=== PATIENT | female | born 1965 | race Caucasian/White ===

== ENCOUNTER 2016-11-20 19:57 | Inpatient (IN) ==
[2016-11-20 21:00] LABS: MANUAL DIFF NEEDED? NO
[2016-11-20 21:03] LABS: URINE MICRO REVIEW NEEDED? NO
[2016-11-20 21:10] LABS: BILIRUBIN URINE NEGATIVE (NEGATIVE); BLOOD URINE NEGATIVE (NEGATIVE); COLOR YELLOW; GLUCOSE URINE 500 mg/dL (NEGATIVE); LEUKOCYTES URINE TRACE (NEGATIVE); NITRITE URINE NEGATIVE (NEGATIVE); PH URINE 5.5; PROTEIN URINE NEGATIVE (NEGATIVE); UROBILINOGEN URINE NORMAL (NORMAL)
[2016-11-20 21:11] LABS: BASO% 0.2 % (0.0-0.8); EOS# 0.07 X1000 (0.0-0.7); EOS% 1.7 % (0.0-10.0); HEMATOCRIT 39.3 % (37.0-47.0); HEMOGLOBIN 13.6 g/dL (12.0-16.0); LYMPH# 1.77 X1000 (1.2-3.4); LYMPH% 43.2 % (20.5-51.1); MCH 31.5 PG (27-31); MCHC 34.6 g/dL (33-37); MONO# 0.28 X1000 (0.11-0.59); MONO% 6.8 % (1.7-9.3); MPV 10.6 FL (7.4-10.4); NEUT% 48.1 % (42.2-75.2); PLT 173 X1000 (130-400); RBC 4.32 XMIL (4.2-5.4)
[2016-11-20 21:21] LABS: SP GRAVITY URINE 1.012; TURBIDITY URINE HAZY (CLEAR)
[2016-11-20 21:22] LABS: UR EPITHELIAL CELLS <10 /HPF (<10); URINE BACTERIA 2+ /HPF; URINE CULTURE NEEDED? YES; URINE RBC <10 /HPF (<10)
[2016-11-20 21:32] LABS: URINE SOURCE CLEAN CATCH
[2016-11-20 21:46] LABS: AGAP 19; ALBUMIN 3.8 g/dL (3.5-5.0); ALKALINE PHOSPHATASE 47 U/L (32-104); AMYLASE 41 U/L (20-200); BUN 8 mg/dL (8-22); CALCIUM 9.1 mg/dL (8.8-10.2); CHLORIDE 102 mmol/L (98-107); COSMO 282; GOT 26 U/L (10-30); GPT 23 U/L (10-36); LIPASE 156 U/L (13-60); SODIUM 139 mmol/L (136-145); TCO2 18 mmol/L (25-35); TOTAL BILIRUBIN 0.23 mg/dL (0.20-1.00); TOTAL PROTEIN 6.7 g/dL (6.3-8.3)
[2016-11-20] MEDS ORDERED: NS 500 ML IV ONE (23:11)
[2016-11-20] MEDS ORDERED: ZOFRAN IV ONE (23:14)
[2016-11-20] MEDS ORDERED: MORPHINE IV ONE (23:14)
--- NOTE | 2016-11-20 23:18 | PROVIDER DOCUMENTATION ---
This chart was entered by Josseline Mills Scribe, acting as scribe for Ender Rosas CRNP. HPI-General Adult - General Chief Complaint: Fever Stated Complaint: FLU SX Time Seen by Provider: 11/20/16 23:06 Source: patient Allergies/Adverse Reactions: Patient Allergies Allergy/AdvReac Type Severity Reaction Status Date / Time Penicillins Allergy Unknown Verified 11/20/16 23:38 sucralfate [From Carafate] Allergy Unknown Verified 11/20/16 23:38 - History of Present Illness -Gen Adult Nature of Presenting Problems: 51 year old F presents to the ED with a cc of nausea, vomiting, diarrhea, cough , ABD pain, and generalized weakness with an onset of yesterday. PT states that she was seen at [place] ED and diagnosed with the flu. PT states that she was given Tamiflu and cough medications. PT states that she is getting worse. Location of Pain/Injury: reports: generalized Pain Radiation: reports: no radiation Quality of Pain: reports: aching Severity: reports: mild Onset/Duration: reports: 24 hours ago Timing: reports: still present Context/Activities at Onset: reports: none Modifying Factors: improves with: nothing Associated Symptoms: reports: cough, diarrhea, muscle aches, nausea, vomiting Similar Symptoms Previously?: No Recently seen or treated by another doctor?: Yes Review of Systems - Adult - REVIEW OF SYSTEMS - ADULT Constitutional: reports: fatique. denies: chills, fever Eyes: reports: no symptoms reported Ears, Nose, Mouth & Throat: denies: ear pain, throat pain Cardiovascular: reports: no symptoms reported Respiratory: reports: cough. denies: shortness of breath Gastrointestinal: reports: abdominal pain, diarrhea, nausea, vomiting Genitourinary: denies: dysuria, hematuria Musculoskeletal: reports: muscle weakness. denies: muscle aches Integumentary: denies: skin sores/ulcer, skin thickening Neurological: reports: no symptoms reported Psychiatric: reports: no symptoms reported Endocrine: reports: no symptoms reported Hematologic/Lymphatic: reports: no symptoms reported Allergic/Immunologic: reports: no symptoms reported All Other Systems: Reviewed and Negative Past History - Adult - PAST MEDICAL HISTORY-ADULT Review of Records: reports: Nursing Assessment Review, Medications Reviewed Major Childhood Illnesses: reports: denies history - PRIOR SURGERIES/PROCEDURES Surgical/Procedure History: reports: none - IMMUNIZATION STATUS Childhood Immunizations: See Nurse Assessment Flu Vaccine: See Nurse Assessment - SOCIAL HISTORY Smoking: non-smoker Substance Use: none/never Alcohol Use Frequency: never Physical Exam-General - PHYSICAL EXAM-ADULT Initial Vital Signs Reviewed: Yes - CONSTITUTIONAL General Appearance: alert, mild distress. negative: appears well - EYES Eyes: PERRL/EOMI - HEAD, EARS, NOSE, MOUTH & THROAT HENMT: normocephalic/atraumatic, moist mucous membranes, normal ENT inspection - RESPIRATORY Respiratory: chest non-tender, lungs clear, normal breath sounds - CARDIOVASCULAR Cardiovascular: normal peripheral pulses, regular rate, rhythm, no edema - GASTROINTESTINAL (ABDOMEN) Abdominal Exam: normal bowel sounds, soft, tenderness (epigastric) - MUSCULOSKELETAL Extremity: normal inspection - SKIN Integumentary: normal color, normal turgor, warm/dry - PSYCHIATRIC Psych/Mental Status: normal mood/affect, normal thought content, normal thought process, oriented x 3 Progress - PLAN OF CARE/RESULTS Progress/Plan/Lab Results: Vital Signs - 8 hr 11/20/16 20:17 Temperature 98.3 F Pulse Rate 92 H Respiratory Rate 16 Blood Pressure 94/61 O2 Sat by Pulse Oximetry 98 11/20/16 20:10 Influenza Screen - Final Nasopharyngeal Laboratory Results - last 24 hr 11/20/16 11/20/16 11/20/16 20:40 20:40 20:45 WBC 4.10 L RBC 4.32 Hgb 13.6 Hct 39.3 MCV 91.0 MCH 31.5 H MCHC 34.6 RDW Std Deviation 13.5 Plt Count 173 MPV 10.6 H Immature Gran % (Auto) 0.0 Neut % (Auto) 48.1 Lymph % (Auto) 43.2 Reeves % (Auto) 6.8 Eos % (Auto) 1.7 Baso % (Auto) 0.2 Immature Gran # (Auto) 0.00 Neut # (Auto) 1.97 Lymph # (Auto) 1.77 Reeves # (Auto) 0.28 Eos # (Auto) 0.07 Baso # (Auto) 0.01 Sodium 139 Potassium 4.0 Chloride 102 Carbon Dioxide 18 L Anion Gap 19 BUN 8 Creatinine 0.6 Estimated GFR/1.73 m2 > 60 BUN/Creatinine Ratio 13 Glucose 205 H Calculated Osmolality 282 Calcium 9.1 Total Bilirubin 0.23 AST 26 ALT 23 Alkaline Phosphatase 47 Total Protein 6.7 Albumin 3.8 Globulin 2.9 Albumin/Globulin Ratio 1.3 Amylase 41 Lipase 156 H Urine Source CLEAN CATCH Urine Color YELLOW Urine Turbidity HAZY Urine pH 5.5 Ur Specific [place] 1.012 Urine Protein NEGATIVE Ur Glucose (Stick) 500 A Ur Ketones (Stick) NEGATIVE Urine Blood NEGATIVE Urine Nitrite NEGATIVE Urine Bilirubin NEGATIVE Urobilinogen Dipstick NORMAL Urine Leukocytes TRACE A Urine WBC (Auto) 10-20 A Urine RBC (Auto) <10 U Epithel Cells (Auto) <10 Urine Bacteria (Auto) 2+ Orders Category Date Time Status Saline Loc DIRECTED Care 11/20/16 20:21 Active NPO Diet 11/20/16 20:21 Active AMYLASE [CHEM] Stat Lab 11/20/16 20:40 Completed CBC WITH ELECTRONIC DIFF [HEME] Stat Lab 11/20/16 20:40 Completed COMPREHENSIVE METABOLIC PANEL [CHEM] Stat Lab 11/20/16 20:40 Completed Flu Swab [INFLUENZA SCREEN A/B] Stat Lab 11/20/16 20:10 Completed LIPASE [CHEM] Stat Lab 11/20/16 20:40 Completed URINALYSIS W/POSS RFLX CULT [URINALYSIS] Stat Lab 11/20/16 20:45 Completed URINE CULTURE [RM] Routine Lab 11/20/16 21:33 Received [id number]--PATIENT STILL ILL APPEARING. DISCUSSED PATIENT WITH DR. BARNARD. PATIENT TO BE ADMITTED. PATIENT VOICES UNDERSTANDING AND IS AGREEABLE FOR ADMIT HERE. Result Diagrams: 11/20/16 20:40 11/20/16 20:40 - REASSESSMENT Reassessment #1 Time Reassessed: 01:15 (PATIENT REPORTS NOT FEELING ANY IMPROVEMENT, AND NOW STATES SHE IS HAVING CHEST PRESSURE ACROSS CHEST. ) - EKG 1 Time of EKG reading by physician:: 02:01 EKG Read and Signed by:: Pepe Caceres EKG Interpretation (*Must complete 3 of following elements*): Normal Rate: 89 Rhythm: NORMAL SINUS RHYTHM ST Wave: normal - XRAY 1 XRAY Study: Chest Impression: Normal XRAY Interpretation: negative: Dr. Caceres( ) - CT/MRI 1 CT Study: Abdomen, Pelvis Impression: Abnormal (Fatty liver. Cholecystectomy. Normal appendix. No abscess. Mildly distended small bowel loops may indicate enteritis. Hysterectomy. Renal Stones. No hydronephrosis. Normal pancreas.: Dr. Plata( radiologist)) - CONSULTS/PCP/HOSPITALIST Notification #1 *Consult/PCP/Hospitalist*: DR. BARNARD Time Discussed: 01:42 Consult Disposition: Admit (DR. BARNARD STATES HE WILL INPUT HIS OWN ADMIT ORDERS FOR PATIENT.) Departure - Departure Time of Disposition Decision: 01:42 DIAGNOSIS: Influenza B Urinary tract infection Qualifiers: Urinary tract infection type: site unspecified Diabetes Qualifiers: Diabetes mellitus type: type 2 Disposition: ADMITTED INPATIENT 09 Certified Medical Emergency: Emergent Condition: Fair Referrals and Follow-Ups: None,PCP [Primary Care Provider] - Attestation - Physician/ ALINA Attestation Patient care was provided by Advanced Practice Provider:: Yes Advanced Practice Provider:: Ender Rosas Advanced Practice Provider documentation review:: The Mid-level provider documentation, treatment plan and medical decision making was reviewed by the physician who agrees with all treatment and medical decision making by the MLP. This chart was documented by the indicated scribe, (Josseline Mills Scribe) and accurately reflects the services I performed and decisions made by me, Ender Rosas CRNP, as attested by the provider's signature.
[2016-11-21 00:22] LABS: ALLEN TEST YES; BE -1.1 mmoll (-3.0-3.0); BLOOD TYPE ARTERIAL; DRAW SITE L BRACHIAL; METHB 1.9 % (0.0-1.5); O2(CT) 16.6 mL/dL (15.0-23.0); PCO2(98.6) 26 mmHg (35-45); PO2(98.6) 86 mmHg (60-100); SAMPLE BLOOD; SAO2 99.1 % (95.0-100.0); THB 12.4 g/dL (11.5-17.4); pH(98.6) 7.51 (7.35-7.45)
[2016-11-21 00:23] LABS: MODALITY CANNULA
[2016-11-21] MEDS ORDERED: ASPIRIN PO ONE (01:16)
[2016-11-21] MEDS ORDERED: ROCEPHIN 2 GM/NS 2 GM/50 ML IVPB IV ONE (01:18)
[2016-11-21] MEDS ORDERED: NS 1,000 ML IV ONE (01:18)
[2016-11-21] MEDS ORDERED: MORPHINE IV ONE (01:43)
[2016-11-21] MEDS ORDERED: ZOFRAN IV PRN (04:07)
[2016-11-21] MEDS: HUMALOG SUBQ SCH ×3 (07:02→16:35)
--- NOTE | 2016-11-21 07:30 | HISTORY AND PHYSICAL ---
CHIEF COMPLAINT: Fever, flu symptoms. HISTORY OF PRESENT ILLNESS: A 51-year-old female, presents to the ER with complaint of nausea, vomiting, diarrhea, cough, abdominal pain, generalized weakness, with onset yesterday. The patient said that she was seen in [place] ED and diagnosed with the flu. She was given Tamiflu and cough medication. Says she is not feeling any better, so she came into the emergency room. Flu swab was positive for Influenza B. The patient's vital signs were stable. Otherwise laboratory data was grossly normal. The patient as a past medical history of congestive heart failure, diabetes mellitus type 2 now insulin-dependent, and frequent kidney stones. She will be admitted inpatient for further evaluation and treatment. PAST MEDICAL HISTORY: 1. Diabetes mellitus, type 2, now insulin dependent. 2. Congestive heart failure, unknown ejection fraction. Will order echocardiogram. 3. Degenerative disk disease. 4. Kidney stones. PREVIOUS SURGICAL HISTORY: 1. BTL. 2. Laparoscopic cholecystectomy. 3. Hemorrhoidectomy. 4. Hysterectomy. 5. Right partial knee replacement. 6. Right shoulder scope. 7. Lithotripsy. 8. Colonoscopy x3. SOCIAL HISTORY: Lives with her . Smokes a pack and half of cigarettes a day. Smoking cessation was gone over with the patient. However, she did not want to quit at this time. Denies illicit drug use or abuse. FAMILY HISTORY: Mother from myocardial infarction at age 65. Father had congestive heart failure and diabetes mellitus, but is still living. ALLERGIES: Penicillins and Carafate. HOME MEDICATIONS: The list was in the process of being reconciled by nursing in the emergency room. We will continue when appropriate. REVIEW OF SYSTEMS: Fourteen point review of systems conducted with the patient. Positive for fever, chills, body aches, nausea, vomiting, diarrhea, fatigue, abdominal pain. Denies chest pain, headache, dysuria, hematuria, hematochezia, melena, hematemesis, dizziness, orthopnea. PHYSICAL EXAMINATION: VITAL SIGNS: Temperature 98.3. Pulse 92, respirations 16, blood pressure 114/73, oxygen saturation 98% on room air. GENERAL: A pleasant 51-year-old female, who looks ill lying in the ER stretcher in no acute distress. Oriented x4. Appears to be very ill. Is in no acute distress. HEENT: Head is atraumatic, normocephalic. Pupils equal, round, reactive to light. Extraocular eye movement intact. Sclerae is anicteric. Conjunctivae is pink. Oral mucosa is dry. NECK: Supple. No JVD. No thyromegaly. Trachea is midline. No cervical lymphadenopathy. CARDIAC: S1-S2 appreciated. No murmurs, gallops, rubs. Regular rhythm. LUNGS: Mild expiratory wheezing. Otherwise, clear to auscultation bilaterally. Decreased bilaterally. Symmetrical rise and fall with respirations. ABDOMEN: Soft, nondistended, diffusely tender to palpation. Bowel sounds present in all 4 quadrants. Normoactive. No pulsatile mass. No organomegaly. EXTREMITIES: No clubbing, cyanosis, or edema. 2+ pedal pulses. GENITOURINARY: The patient voids, otherwise deferred. SKIN: Warm, dry and intact. No acute lesions or rash. Patient is diaphoretic in the emergency room. DIAGNOSTIC DATA: Chest x-ray negative per Dr. Caceres in the emergency room. EKG normal sinus rhythm, rate of 89. LABORATORY DATA: WBC 4.10, hemoglobin 13.6, hematocrit 39.3, platelet count 173. ABG: pH 7.51, pCO2 of 26, pO2 of 86, bicarb 24. This was on 3 L nasal cannula. Sodium 139, potassium 4, chloride 102, carbon dioxide 18, BUN 8, creatinine 0.6, glucose 205. Lipase 156. Urine 10-20 WBCs, 2+ bacteria. ASSESSMENT AND PLAN: 1. Influenza B. Start patient on Tamiflu 75 mg p.o. b.i.d. 2. Nausea, vomiting, diarrhea. We will give Zofran 4 mg IV q.4 hours. We will give fluid hydration. A CT of the abdomen noted gastritis. We will start Protonix 40 mg IV q.24 hours. 3. Diabetes mellitus type 2, now insulin dependent. Sliding scale insulin with fingerstick blood sugars. 4. History of congestive heart failure. No baseline echocardiogram. Will order echocardiogram. Additional orders: Nursing to reconcile home medications, n.p.o. at this time related to nausea, vomiting, diarrhea. We will hold on bedrest at this time. Recheck laboratory data. Check TSH. Further recommendations per patient clinical course. Dictated by BIANCA Gao for Anibal Leonard MD cc: BIANCA Gao MD Dr. Absod
--- NOTE | 2016-11-21 08:18 | Diag Imaging Result Document ---
PROCEDURE NAME: CT ABD/PELVIS W/ IV CONT ONLY - 11/20/2016 CT ABDOMEN AND PELVIS WITH INTRAVENOUS CONTRAST. DOSE REDUCTION PROTOCOL: COMPARISON: No comparison films. FINDINGS: There is diffuse fatty infiltration of the liver. No focal hepatic abnormality. The gallbladder has been removed. Normal spleen and adrenal glands. No inflammation about the pancreas. No pancreatic calcifications. Normal enhancement of the kidneys. There are several bilateral renal stones. No hydronephrosis. No aortic aneurysm. There are small periaortic lymph nodes. There are mildly distended fluid-filled loops of bowel in the left abdomen. No inflammation about the cecum. No abscess. No free air. The uterus has been removed. No pelvic mass. The urinary blader is moderately distended and appears normal. IMPRESSION: 1. Possible enteritis. 2. Fatty infiltration of the liver. 3. Cholecystectomy. 4. Hysterectomy. 5. No abnormality to the pancreas identified. 6. Non obstructing renal stones. A preliminary report was given at 12:06 a.m. MTDD
--- NOTE | 2016-11-21 08:22 | Diag Imaging Result Document ---
PROCEDURE NAME: CHEST-1 VIEW - 11/20/2016 SINGLE FRONTAL RADIOGRAPH OF THE CHEST: COMPARISON: None available. FINDINGS: The lungs are grossly clear. There is no discrete pleural fluid collection or evidence of pneumothorax. The cardiomediastinal silhouette and upper airway are grossly unremarkable. IMPRESSION: No evidence of acute chest pathology.
[2016-11-21] MEDS: LOVENOX SUBQ SCH (10:33)
[2016-11-21] MEDS: TYLENOL PO PRN ×2 (10:33→16:36)
[2016-11-21] MEDS: PROTONIX IV SCH (10:33)
[2016-11-21] MEDS: SODIUM CHLORIDE 0.9% INJ SCH (10:33)
[2016-11-21] MEDS: TAMIFLU PO SCH ×2 (10:33→21:42)
[2016-11-21] MEDS: LOPRESSOR PO SCH (21:38)
[2016-11-21] MEDS: PERCOCET-10 PO SCH (21:42)
[2016-11-21] MEDS: ZOCOR PO SCH (21:42)
[2016-11-21] MEDS: EFFEXOR PO SCH (21:42)
[2016-11-21] MEDS: LYRICA PO SCH (21:42)
--- NOTE | 2016-11-22 02:25 | PROGRESS NOTE ---
DATE: 11/21/2016 ADDENDUM: Briefly, 51-year-old female presenting with influenza B acutely. She is on Tamiflu. She is still having nausea, vomiting. No diarrhea. I am going to advance her diet. Restart her home medications. Echocardiogram is still pending and we will follow clinically for improvement. She is still fairly weak so anticipate she probably will be here through tomorrow. cc: William Olson MD
[2016-11-22] MEDS: PERCOCET-10 PO SCH ×5 (05:29→21:16)
[2016-11-22] MEDS: HUMALOG SUBQ SCH ×5 (05:29→21:16)
[2016-11-22 07:19] LABS: MANUAL DIFF NEEDED? NO
[2016-11-22 07:41] LABS: AGAP 13; BUN 6 mg/dL (8-22); CHLORIDE 101 mmol/L (98-107); COSMO 276; POTASSIUM 3.5 mmol/L (3.5-5.1); SODIUM 136 mmol/L (136-145); TCO2 22 mmol/L (25-35)
[2016-11-22 07:48] LABS: BASO% 0.2 % (0.0-0.8); EOS# 0.04 X1000 (0.0-0.7); EOS% 0.9 % (0.0-10.0); HEMATOCRIT 35.9 % (37.0-47.0); HEMOGLOBIN 12.4 g/dL (12.0-16.0); LYMPH# 1.77 X1000 (1.2-3.4); LYMPH% 38.6 % (20.5-51.1); MCH 31.9 PG (27-31); MCHC 34.5 g/dL (33-37); MCV 92.3 FL (81-99); MONO# 0.44 X1000 (0.11-0.59); MONO% 9.6 % (1.7-9.3); MPV 10.4 FL (7.4-10.4); NEUT% 50.7 % (42.2-75.2); PLT 145 X1000 (130-400); RBC 3.89 XMIL (4.2-5.4)
[2016-11-22] MEDS ORDERED: MIRAPEX PO SCH (09:00)
[2016-11-22] MEDS: TRICOR PO SCH (09:51)
[2016-11-22] MEDS: LOPRESSOR PO SCH ×3 (09:51→22:36)
[2016-11-22] MEDS: LOVENOX SUBQ SCH (09:51)
[2016-11-22] MEDS: PROTONIX IV SCH (09:51)
[2016-11-22] MEDS: EFFEXOR PO SCH (09:51)
[2016-11-22] MEDS: TAMIFLU PO SCH ×2 (09:51→21:16)
[2016-11-22] MEDS: LYRICA PO SCH (10:11)
[2016-11-22] MEDS: XANAX PO SCH (10:12)
[2016-11-22] MEDS ORDERED: NS 250 ML IV ONE (15:59)
[2016-11-22] MEDS ORDERED: SUDAFED PO PRN (16:02)
--- NOTE | 2016-11-22 16:24 | PROGRESS NOTE ---
DATE: 11/22/2016 SUBJECTIVE: The patient has numerous complaints. Still feels weak, nausea. She is not having petar emesis anymore. Abdominal pain is better. She has pain in her left elbow associated with some swelling. She is also complaining of some of her medications are not ordered appropriately. PHYSICAL EXAMINATION: Vital signs: Blood pressure was 86/58 with heart rate 74, respiratory rate 21, temp was 98.2 degrees. LABORATORY DATA: I think was pretty much normal. Blood sugar 223. White count 4.5, hemoglobin and hematocrit 12 and 35. PROBLEM LIST: 1. Influenza B. She is on Tamiflu, slow to recover but doing okay. 2. Nausea, vomiting, diarrhea that appears to be resolving. I am going to advance her diet. 3. Hypotension. We will give her a gentle bolus and hydration and follow closely. We are holding her antihypertensives. 4. Reported history of CHF. I am still waiting on her echo. Again right now she does not look overloaded, if anything she looks a bit dry. So we will continue monitor. 5. Hopefully disposition, discharge 1-2 days. cc: William Olson MD
[2016-11-22] MEDS: NS 1,000 ML IV SCH (17:04)
[2016-11-22] MEDS: GLUCOPHAGE PO SCH (19:01)
[2016-11-22] MEDS: ZANAFLEX PO SCH (19:02)
[2016-11-22] MEDS: ZOCOR PO SCH (21:15)
[2016-11-22] MEDS: MIRAPEX PO SCH (21:15)
--- NOTE | 2016-11-22 23:59 | ECHO REPORT ---
ORDER DATE: 11/22/2016 INTERPRETING PHYSICIAN: Dr. Medrano REQUESTING PHYSICIAN: CLINICAL INDICATIONS: CHF, hypertension, smoker. M-MODE MEASUREMENTS: Right ventricle: 2.4 cm. Left ventricle end diastole: 5.0 cm. Left ventricle end systole: 3.1 cm. Posterior wall: 0.8 cm. Interventricular septum: 0.8 cm. Left atrium: 3.1 cm. Aortic root: 3.1 cm. SUMMARY OF 2-DIMENSIONAL IMAGING: The left ventricular function is normal. Ejection fraction 61%. No wall motion abnormality. The right ventricle is normal. The pulmonic valve shows a mild degree of regurgitation. The tricuspid valve looks normal. Color flow mapping indicates trace regurgitation. The inferior vena cava is not dilated. Pulmonary systolic pressure is estimated at 22-27 mmHg. The mitral valve looks normal. Color flow mapping indicates trace regurgitation. Pulse wave Doppler of mitral inflow is normal. Tissue Doppler of septal and lateral mitral annulus averages 10 cm per second. Pulse wave Doppler of pulmonary venous flow is normal. There is no diastolic dysfunction. The aortic valve looks normal. Color flow mapping unremarkable. There is no pericardial effusion, masses or thrombus. IMPRESSION: In summary, this study shows: 1. Excellent left ventricular systolic function. 2. No evidence of diastolic dysfunction. 3. Very trivial degree of mitral and pulmonic regurgitation. Clinical correlation recommended. cc: MD Daniel Lee CRNP
[2016-11-23] MEDS: PERCOCET-10 PO SCH ×3 (05:29→22:58)
[2016-11-23] MEDS: NS 1,000 ML IV SCH ×2 (05:44→23:00)
[2016-11-23] MEDS: HUMALOG SUBQ SCH ×4 (06:24→22:59)
[2016-11-23 07:07] LABS: HEMATOCRIT 36.8 % (37.0-47.0); HEMOGLOBIN 12.4 g/dL (12.0-16.0); MCH 31.2 PG (27-31); MCHC 33.7 g/dL (33-37); MCV 92.5 FL (81-99); MPV 10.3 FL (7.4-10.4); RBC 3.98 XMIL (4.2-5.4)
[2016-11-23 07:18] LABS: AGAP 12; BUN 6 mg/dL (8-22); CALCIUM 7.9 mg/dL (8.8-10.2); CHLORIDE 103 mmol/L (98-107); COSMO 281; POTASSIUM 3.7 mmol/L (3.5-5.1); SODIUM 140 mmol/L (136-145); TCO2 25 mmol/L (25-35)
[2016-11-23] MEDS ORDERED: LASIX PO SCH (09:00)
[2016-11-23] MEDS: SODIUM CHLORIDE 0.9% INJ SCH (10:20)
[2016-11-23] MEDS: LOPRESSOR PO SCH ×2 (10:20→22:58)
[2016-11-23] MEDS: LYRICA PO SCH ×3 (10:20→22:59)
[2016-11-23] MEDS: PROTONIX IV SCH (10:20)
[2016-11-23] MEDS: TRICOR PO SCH (10:20)
[2016-11-23] MEDS: ZANAFLEX PO SCH ×3 (10:20→17:16)
[2016-11-23] MEDS: TAMIFLU PO SCH ×2 (10:20→22:58)
[2016-11-23] MEDS: GLUCOPHAGE PO SCH ×2 (10:20→17:16)
[2016-11-23] MEDS: LOVENOX SUBQ SCH (10:21)
[2016-11-23] MEDS: GLUCOTROL PO SCH (10:21)
[2016-11-23] MEDS: EFFEXOR PO SCH (10:21)
[2016-11-23] MEDS: XANAX PO SCH (10:21)
--- NOTE | 2016-11-23 10:42 | PROGRESS NOTE ---
DATE: 11/23/2016 HISTORY: A 51-year-old who presented to the emergency room complaining of nausea, vomiting, diarrhea, cough, abdominal pain, and generalized weakness, onset the day before, 11/20/2016. Came to the hospital ER. Diagnosed with flu. Given Tamiflu, cough medication. Was not feeling any better and came to the emergency room. Swab was positive for influenza B. Vital signs were stable. PAST MEDICAL HISTORY: 1. Diabetes mellitus type 2. 2. Congestive heart failure. Unknown ejection fraction. I think echocardiogram was obtained this admission. 3. Degenerative disk disease. 4. Kidney stones. PAST SURGICAL HISTORY: Bilateral tubal ligation, laparoscopic cholecystectomy, hemorrhoidectomy, hysterectomy, right partial knee replacement, right shoulder scope, lithotripsy, colonoscopy x3. The patient was given Tamiflu b.i.d. Weak and puny. Given some fluids. She does feel better but still feels pretty weak and Levaquin tired. We checked an echocardiogram on 11/22/2016. Excellent left ventricular function. No evidence of diastolic dysfunction. Very trivial degree of mitral and pulmonic regurgitation. PHYSICAL EXAMINATION: General: On examination today, awake, alert, sitting up eating breakfast. Vital Signs: Temperature 98.6 degrees, pulse 80, respirations 20, blood pressure 95/62. HEENT: Pupils are equal and round. CVP less than 6 cm. Lungs: Clear in all lung preciado. Cardiovascular Examination: Regular rhythm and rate without murmur or S3. Abdomen: Soft. Skin: Warm and dry. Is and Os: Good urine output at 1600 mL. LABORATORY DATA: Blood sugars have been well maintained. Blood work today, white count 3900, hematocrit 36, platelet count 155,000. Sodium 140, potassium 3.7, chloride 103, bicarb 25, BUN 6, creatinine 0.6. Calculated osmolality has been checked, 179, 25, 159. Calcium was 7.9. ASSESSMENT AND PLAN: 1. Influenza B. Slow to recover but doing better. See if we can get her home tomorrow. 2. Nausea, vomiting, and diarrhea. Appears to be resolving. She is eating. Continue fluids. 3. Hypertension, which is resolved. 4. History of congestive heart failure. Echocardiogram shows normal left ventricular function. I do not se any left ventricular diastolic dysfunction. Hopefully, can go home tomorrow. 5. Review of orders. I do not see anything to change at this point. She is on Effexor 75 mg twice a day. She is getting fluids, normal saline at 250 mL. Was getting 250 mL an hour and they stopped that. Zocor 40 mg a day, pseudoephedrine 30 mg three times a day as needed, Lyrica 75 mg twice a day, Mirapex 1 mg at bedtime, Protonix 40 mg a day, oxycodone 10 mg every 6 hours, Tamiflu 75 mg twice a day. Her fluids are normal saline at 75 mL an hour. Metformin 1000 mg twice a day, glipizide 5 mg a day, TriCor 145 mg a day, and she gets 0.5 of Xanax daily. cc: Min Mueller MD
[2016-11-23] MEDS: VENTOLIN HFA INH PRN (16:45)
[2016-11-23] MEDS: MIRAPEX PO SCH (22:58)
[2016-11-23] MEDS: ZOCOR PO SCH (22:59)
[2016-11-24] MEDS: EFFEXOR PO SCH ×2 (03:26→09:32)
[2016-11-24] MEDS: PERCOCET-10 PO SCH ×4 (04:53→14:02)
[2016-11-24] MEDS: HUMALOG SUBQ SCH ×2 (06:51→11:52)
[2016-11-24] MEDS: ZANAFLEX PO SCH ×2 (09:31→14:00)
[2016-11-24] MEDS: LOPRESSOR PO SCH (09:31)
[2016-11-24] MEDS: GLUCOPHAGE PO SCH (09:31)
[2016-11-24] MEDS: LOVENOX SUBQ SCH (09:32)
[2016-11-24] MEDS: PROTONIX IV SCH (09:32)
[2016-11-24] MEDS: TRICOR PO SCH (09:32)
[2016-11-24] MEDS: TAMIFLU PO SCH (09:32)
[2016-11-24] MEDS: GLUCOTROL PO SCH (09:32)
[2016-11-24] MEDS: SODIUM CHLORIDE 0.9% INJ SCH (09:33)
[2016-11-24] MEDS: XANAX PO SCH (09:42)
[2016-11-24] MEDS: LYRICA PO SCH (09:42)
--- NOTE | 2016-11-24 11:21 | Extremity Venous Study ---
PROCEDURE NAME: Venous U/S Left Arm - 11/22/2016 STUDY: Left upper extremity venous duplex study. REFERRING PHYSICIAN: William Olson MD READING PHYSICIAN: Loc Worthington MD [employer]VISOR: [place] INDICATION: Left arm pain and swelling near the elbow with an IV in the left forearm. FINDINGS: The deep and superficial veins of the left upper extremity were imaged throughout their course. They are compressible with forward flow and without thrombus. INTERPRETATION: No evidence of deep or superficial venous thrombosis in the left upper extremity. cc: MD William Estevez MD
[2016-11-24] MEDS: VENTOLIN HFA INH PRN (11:32)
[2016-11-24 15:13] VITALS: BP 96/56
--- NOTE | 2016-11-24 15:29 | DISCHARGE SUMMARY ---
ADMISSION DATE: 11/21/2016 DISCHARGE DATE: 11/24/2016 51-year-old, presented to the emergency room on 11/21/2016 with complaints of nausea, vomiting, diarrhea, cough, abdominal pain, generalized weakness, started the day before. She was seen in the emergency room, [facility] and was diagnosed with flu. Was given Tamiflu and cough medicine. Not feeling any better. She came to the emergency room. Flu swab was positive for influenza B. The patient's vital signs were stable. The patient had a medical history of congestive heart failure, diabetes mellitus type 2 insulin dependent, frequent kidney stones and degenerative disk disease. PREVIOUS SURGICAL HISTORY: 1. Bilateral tubal ligation. 2. Laparoscopic cholecystectomy. 3. Hemorrhoidectomy. 4. Hysterectomy. 5. Right partial knee replacement. 6. Right shoulder scopes. 7. Lithotripsy. 8. Colonoscopy. She was given IV fluids and started on Tamiflu 75 mg b.i.d. She was a little bit volume depleted so she was given IV fluids and some Zosyn and still felt very weak and puny and really did not want to go home. Talked her into going home on 11/24/2016. DISCHARGE MEDICATIONS: Are going to be, I think she already takes Xanax 0.5 mg daily. TriCor 145 mg a day. Glipizide 5 mg daily. Glucophage a 1000 mg b.i.d. Lopressor 25 mg b.i.d. She has finished her course of Tamiflu. MiraLAX 1 mg at bedtime. Lyrica 75 mg b.i.d., and she was taking Sudafed as needed. Zocor 40 mg q.p.m. Zanaflex 4 mg t.i.d. Effexor 75 mg b.i.d. We will get her set up to go home. Follow up with her primary care physician. cc: Min Mueller MD
== END 2016-11-24 16:55 | disposition home or self-care (01) ==
LOC: ED 19:57 → SUATTDRO 11-21 03:27 → 3N 11-21 03:27
PROVIDERS: ATTEND Emergency Medicine